=== PATIENT | male | born 1975 | race Caucasian/White ===

== ENCOUNTER 2017-01-09 05:29 | Day surgery (SDC) | payer BC ==
[2017-01-08 16:35] LABS: BASOPHILS 0.5 % (0.0-2.0); HEMATOCRIT 49.1 % (42.0-54.0); HEMOGLOBIN 17.1 g/dL (13.5-17.5); IMMATURE GRANULOCYTES 0.1 % (0-5); LYMPHOCYTES 41.6 % (15-50); MCH 31.3 pg (26.0-34.0); MCHC 34.8 g/dL (31.0-37.0); MCV 89.8 fL (80.0-100.0); MEAN PLATELET VOLUME 9.8 fL (7.4-10.4); MONOCYTES 9.4 % (2-11); NEUTROPHILS 47.4 % (40-80); PLATELET COUNT 196 10x3/uL (130-400); RBC 5.47 10x6/uL (4.20-6.10); RDW 12.6 % (11.5-14.5)
[2017-01-08 16:46] LABS: APTT 27.9 SECONDS (22.8-39.4); INR 0.96 (0.85-1.17); PROTIME 12.6 SECONDS (11.6-15.0)
[2017-01-08 16:48] LABS: CALC OSMOLALITY 287 mosm/kg (275-300); CALCIUM 9.2 mg/dL (8.5-10.1); CARBON DIOXIDE 26.5 mmol/L (21.0-32.0); CHLORIDE - SERUM 106 mmol/L (98-107); GLUCOSE 100 mg/dL (74-106); POTASSIUM - SERUM 3.5 mmol/L (3.5-5.1); SODIUM 144 mmol/L (136-145); UREA NITROGEN 14 mg/dL (7-18); eGFR NON AFRICAN AMERICAN 87 mL/min (90-120)
[~2017-01-09] VITALS: Ht 175.3 cm; Wt 98.9 kg
[~2017-01-09 05:29] MED LIST: MULTIPLE VITAMI1 TA1 PO; TRAZODONE HCL50 MG PO
[2017-01-09 05:46] VITALS: BP 133/82; Ht 175.3 cm; Wt 98.9 kg
[2017-01-09] MEDS ORDERED: HYDROCODONE-APA1 TAB PO (08:56)
--- NOTE | 2017-01-09 12:00 | NUR ---
VOIDED WITHOUT DIFFICULTY. IV REMOVED INTACT. DISCHARGE INSTRUCTIONS AND RX GIVEN, VOICED UNDERSTANDING. DISCHARGED HOME VIA WC.
--- NOTE | 2017-01-24 13:33 | OP ---
PATIENT NAME: CONY ROBBINS MEDICAL RECORD: [id number] :73 LOCATION:[facility] ADMISSION DATE: SURGEON: GUS VARGAS MD DATE OF OPERATION: 01/09/2017 PREOPERATIVE DIAGNOSES: Biliary dyskinesia. PREOPERATIVE DIAGNOSIS: Biliary dyskinesia. POSTOPERATIVE DIAGNOSIS: Biliary dyskinesia. PROCEDURE: Laparoscopic cholecystectomy. SURGEON: Gus Vargas MD REPORT OF PROCEDURE: The patient's abdomen was prepped and draped in sterile fashion. A skin incision was made above the umbilicus. Electrocautery was used to dissect through the subcutaneous tissues, 0 Vicryls were placed on the fascia bilaterally and the fascia was incised with 15-blade. I then bluntly entered the peritoneal cavity and placed a 12-mm Keyur port. Under direct visualization, a 5 mm trocar was placed in the epigastrium and 2 more 5-mm trocars were placed in the right subcostal region. The gallbladder was grasped and elevated. There were some inflammatory adhesions present at the fatty tissue around this. This was teased down carefully with blunt dissection. The cystic artery and cystic duct were dissected free and these were clipped proximally and distally and ligated in standard fashion. The gallbladder was then taken off the liver bed using electrocautery and placed in the right upper quadrant. Any bleeding from the liver bed was then treated with electrocautery. At this point, the ports and insufflation were then removed and the gallbladder was taken out through the umbilicus. The umbilical fascia was closed with interrupted 0 Vicryls times 3. The wounds were irrigated out with normal saline and infused with 10 mL of 0.25% Marcaine with epinephrine. The skin incisions were all closed with subcutaneous 5-0 Monocryl and dressed appropriately. COMPLICATIONS: None. CONDITION: Stable. ANESTHESIA: General endotracheal and local. BLOOD LOSS: Minimal. TRANSINT:[id number] Voice Confirmation ID: [id number] DOCUMENT ID: [id number] GUS VARGAS MD at 1333 CC: ELIZABETH YAP MD [id number] DICTATION DATE: 01/09/17 0859 INSTRUCTOR PAINTING: 01/09/17 0944 [facility] 01/09/17 [place] [id number]
== END 2017-01-09 12:00 | disposition home or self-care (01) ==
LOC: D.OPS 05:29 → D.PAN 07:30 → D.OPS 09:45
PROVIDERS: Anesthesiology; Surgery
DX: K82.8 Other specified diseases of gallbladder (principal)